=== PATIENT | male | born 1955 | race Caucasian/White ===

== ENCOUNTER 2019-10-08 05:04 | Observation (INO) ==
--- NOTE | 2019-09-12 16:00 | PAT Medication Instructions ---
Medication Instructions Date of Service September 12, 2019 Home Medications aspirin [Aspir-81] 81 mg PO QAM atorvastatin 80 mg PO HS ezetimibe 10 mg PO PM glipizide 10 mg PO BID lisinopril 2.5 mg PO PM metformin 1,000 mg PO BID sitagliptin [Januvia] 100 mg PO QAM DO NOT take the morning of surgery glipizide 10 mg PO BID metformin 1,000 mg PO BID sitagliptin [Januvia] 100 mg PO QAM Take morning of surgery With a small sip of water, OTHERWISE NOTHING TO EAT OR DRINK AFTER MIDNIGHT: aspirin [Aspir-81] 81 mg PO QAM Take evening before surgery atorvastatin 80 mg PO HS ezetimibe 10 mg PO PM glipizide 10 mg PO BID lisinopril 2.5 mg PO PM metformin 1,000 mg PO BID Other Notes If you have any questions please call us at [phone] or [phone] or [phone] or [phone]
--- NOTE | 2019-09-15 09:46 | Anesthesiology Consultation ---
Date of Service September 15, 2019 Assessment & Plan (1) Encounter for pre-operative examination: COVID Status: As of 09/14 assessment, patient denies travel to endemic area, known exposure/sick contacts, or symptoms of COVID19. Patient instructed that they and their household members must follow strict social distancing guidelines, wear a mask in public and avoid travel for 14 days prior to surgery. Preoperative COVID19 testing to be completed prior to surgery per surgeon's arrangements. Patient made aware to self-isolate as much as possible between COVID testing and surgery. BS[facility] AM DOS Chart Review Chart Review: Acceptable Risk for Surgery (pending surgeon-ordered PCP clearance) and Patient seen in Pre Admission Testing Teaching & Discussion Instructed NPO after midnight before surgery, except medications with 15 cc of water. Medication instructions provided according to the PAT guidelines. History Surgery Operation Date: 10/08/19 07:00 Proposed Procedures p Left Total Knee Arthroplasty - Fausto Chen MD Height/Weight Height: 5 ft 4 in Weight: 68.9 kg Allergies Allergy/AdvReac Type Severity Reaction Status Date / Time No Known Allergies Allergy Verified 09/08/19 10:10 Medications Home Medications Medication Instructions Recorded Confirmed Last Taken aspirin [Aspir-81] 81 mg PO QAM 09/08/19 09/08/19 Unknown atorvastatin 80 mg PO HS 09/08/19 09/08/19 Unknown ezetimibe 10 mg PO PM 09/08/19 09/08/19 Unknown glipizide 10 mg PO BID 09/08/19 09/08/19 Unknown lisinopril 2.5 mg PO PM 09/08/19 09/08/19 Unknown metformin 1,000 mg PO BID 09/08/19 09/08/19 Unknown sitagliptin [Januvia] 100 mg PO QAM 09/08/19 09/08/19 Unknown Past Medical History Medical History Asthma very mild > no inhaler Diabetes mellitus, type 2 niddm Hyperlipidemia Hypertension Exercise / Class Metabolic Activity II 4-5 Yardwork/Stairs/Walk up hill (Denies CP or SOB with 1 FOS) Past Family History Family History Father Diabetes Mother Colon cancer Past Surgical History Surgical History History of arthroscopy left knee History of colonoscopy History of tonsillectomy Past Anesthesia History No Hx of Anesthesia Complications and No Family Hx of Anesthesia Complications History of PONV No Hx of PONV and No Hx of Motion Sickness Social History Smoking Status: Never smoker Do You Dip or Chew Tobacco: No Hx Alcohol Use: Yes Alcohol type: beer and wine alcohol intake frequency: holidays/special occasions only (8/yr) Hx Substance Use: No substance use type: does not use Review of Systems Pt denies any recent chest pain, shortness of breath, palpitations, cough, fever, URI, or uncontrolled acid reflux. Physical Exam Vital Signs BP: 127/79 P: 78bpm SPO2: 96% RA T: 98.5 F R: 16 ENMT Mouth: no dental restorations, no chipped teeth and no loose teeth Thyromental Distance: > or= 3.5 Finger Breadths (3.5) Mallampati Class: I Neck normal visual inspection and + facial hair (medium length schwartz, pt advised to trim); neck extension not limited Respiratory normal respiratory effort Auscultation: lungs clear to auscultation bilaterally Cardiovascular Rate/Rhythm: regular rate and regular rhythm Heart Sounds: no murmur Extremities: no edema Testing Laboratory Results 09/15/19 09:55 09/15/19 09:55 PT 10.1 Seconds (9.0-12.0) 09/15/19 09:55 INR 1.0 (0.9-1.1) 09/15/19 09:55 APTT 26.2 Seconds (21.0-31.0) 09/15/19 09:55 Hemoglobin A1c 7.9 % (4.5-5.6) H 09/15/19 09:55 Urine Color Yellow 09/15/19 09:55 Urine Appearance Clear (Clear) 09/15/19 09:55 Urine pH 5.0 (4.5-7.5) 09/15/19 09:55 Ur Specific [place] 1.035 (1.000-1.030) H 09/15/19 09:55 Urine Protein Negative (Negative) 09/15/19 09:55 Urine Glucose (UA) 3+ (Negative) H 09/15/19 09:55 Urine Ketones Trace (Negative) H 09/15/19 09:55 Urine Nitrite Negative (Negative) 09/15/19 09:55 Ur Leukocyte Esterase Negative (Negative) 09/15/19 09:55 Blood Type A Negative 09/15/19 09:55 Antibody Screen NEGATIVE 09/15/19 09:55 Electrocardiogram Date: 09/15/19 Findings: + NSR @ (76bpm) and + RBBB Chest X-Ray Date: 09/15/19 Findings: + NAD
--- NOTE | 2019-09-15 10:30 | XRay Report ---
XR chest Pre-admission PA/Lat CLINICAL HISTORY: pat preoperative COMPARISON STUDY: No previous studies for comparison. FINDINGS: The bones soft tissues and hemidiaphragms are normal. The cardiomediastinal silhouette is n ormal. The lungs are clear. The pulmonary vasculature is normal. IMPRESSION: Negative chest. ACT 112: Negative or not required by law. The above report was generated using voice recognition software. It may contain grammatical, syntax or spelling errors. Electronically signed by: Mikel Rocha M.D. 09/15/2019 10:28 AM
[2019-09-15 10:59] LABS: Basophils # (auto) 0.04 K/uL (0-0.2); Basophils % (auto) 0.4 %; Eosinophils # (auto) 0.19 K/uL (0-0.5); Eosinophils % (auto) 2.1 %; Hematocrit (blood only) 39.7 % (42-52); Hemoglobin 13.5 g/dL (14.0-18.0); Immature Granulocytes # (auto) 0.03 K/uL (0.00-0.02); Immature Granulocytes % (auto) 0.3 %; Lymphocytes # (auto) 2.21 K/uL (1.2-3.4); Lymphocytes % (auto) 24.1 %; Mean Corpuscular Hemoglobin 30.6 pg (25-34); Mean Platelet Volume 10.1 fL (7.4-10.4); Monocytes # (auto) 0.79 K/uL (0.11-0.59); Monocytes % (auto) 8.6 %; Neutrophils # (auto) 5.91 K/uL (1.4-6.5); Neutrophils % (auto) 64.5 %; Platelet Count 300 K/uL (130-400); RDW Coefficient of Variation 12.8 % (11.5-14.5); RDW Standard Deviation 42.1 fL (36.4-46.3); Red Blood Count 4.41 M/uL (4.7-6.1); White Blood Count 9.17 K/uL (4.8-10.8)
[2019-09-15 11:05] LABS: Appearance Urine Clear (Clear); Bilirubin Urine Negative (Negative); Blood Urine Negative (Negative); Color Urine Yellow; Glucose Urine UA 3+ (Negative); Ketones Urine Trace (Negative); Leukocyte Esterase Urine Negative (Negative); Nitrite Urine Negative (Negative); Protein Urine Negative (Negative); Specific Gravity Urine 1.035 (1.000-1.030); Urobilinogen Urine Negative (Negative)
[2019-09-15 11:07] LABS: BUN Creatinine Ratio 20.9 (10-20); Calcium 9.2 mg/dl (8.5-10.1); Creatinine Clr Calc Pharmacy 56.6 ml/min; Est GFR (African American) 82.1; Est GFR (Non-African American) 70.9; Potassium 4.9 mmol/L (3.5-5.1)
[2019-09-15 11:10] LABS: Partial Thromboplastin Ratio 0.9; Partial Thromboplastin Time 26.2 Seconds (21.0-31.0); Prothrombin Time 10.1 Seconds (9.0-12.0)
[2019-09-15 12:03] LABS: Estimated Average Glucose 180 mg/dl; Hemoglobin A1C 7.9 % (4.5-5.6)
--- NOTE | 2019-09-15 17:53 | Electrocardiogram Report ---
Test Reason : Blood Pressure : / mmHG Vent. Rate : 076 BPM Atrial Rate : 076 BPM P-R Int : 152 ms QRS Dur : 138 ms QT Int : 412 ms P-R-T Axes : 062 -25 032 degrees QTc Int : 463 ms Normal sinus rhythm Right bundle branch block Abnormal ECG No previous ECGs available Confirmed by Yohannes Gillette ([id number]) on 09/15/2019 5:52:35 PM Referred By: Fausto Chen Confirmed By:Omar Gillette
--- NOTE | 2019-09-24 16:42 | History & Physical Report ---
Date of Service September 24, 2019 Assessment & Plan (1) Left knee DJD: Postoperative prescriptions for Percocet and Coumadin will be provided at discharge from the hospital. Anticipate discharge to home with home health services. He has already seen his PCP, Dr. Eng for medical clearance. The patient understands he will stop his metformin 48 hours prior to surgery. PDMP was checked today and is not concerning for any unusual findings. The patient is aware of the COVID-19 risks associated with surgery. He is currently asymptomatic of any COVID-19 symptoms. He will obtain nasal swab testing for COVID-19 prior to surgery. He already has crutches. He believes he has access to a walker and cane. History of Present Illness Chief Complaint: Left knee pain Primary Care Provider: Georges Eng This 63-year-old, white male presents for his preoperative history and physical. He is scheduled to undergo a left knee total knee arthroplasty on 10/08/2019. He has had left knee pain for over 25 years. Pain has become worse with time. He has noted increasing curvature of the lower leg over the last several years. He previously had an open meniscectomy done about 25 years ago. Denies any new trauma. Pain is worse with weightbearing. It is affecting his ambulation and his ADLs. Denies any catching or locking. No numbness or tingling. He denies any significant effusions. Preoperative imaging has been obtained. He elects to proceed with surgical intervention in hopes of improving his function and pain control. Allergies Allergy/AdvReac Type Severity Reaction Status Date / Time No Known Allergies Allergy Verified 09/08/19 10:10 Home Medications Home Medications Medication Instructions Recorded Confirmed Type aspirin [Aspir-81] 81 mg PO QAM 09/08/19 09/08/19 History atorvastatin 80 mg PO HS 09/08/19 09/08/19 History ezetimibe 10 mg PO PM 09/08/19 09/08/19 History glipizide 10 mg PO BID 09/08/19 09/08/19 History lisinopril 2.5 mg PO PM 09/08/19 09/08/19 History metformin 1,000 mg PO BID 09/08/19 09/08/19 History sitagliptin [Januvia] 100 mg PO QAM 09/08/19 09/08/19 History Past Med/Surg History Medical History Asthma very mild > no inhaler Diabetes mellitus, type 2 niddm Hyperlipidemia Hypertension Surgical History History of arthroscopy left knee History of colonoscopy History of tonsillectomy Family History Father Diabetes Mother Colon cancer Social History Smoking Status: Never smoker Second Hand Exposure: No; Do You Dip or Chew Tobacco: No; Tobacco Cessation Education Requested by Patient: No Hx Alcohol Use: Yes Alcohol type: beer and wine Hx Substance Use: No Preferred Language: [place] Communication Ability: Effective Hearing Ability: Normal [place] Man Required: No Beliefs That Will Affect Care: None marital status: Current Living Situation: Spouse current occupational status: retired Other Information That Helps Us Care for You: No Feels Safe at Home: Yes Safety Concerns: Feels Safe At This Time Review of Systems Review of Systems: All systems reviewed & are unremarkable except as noted in HPI & below A total of 10 systems are reviewed. Physical Exam Physical Exam: Vitals: Height 162.5 cm, weight 67.3 kg, BMI 25.5. Temperature 36.4 oral, BP 118/70, pulse 94, O2 sat 97% on room air. General: Well-developed, well-nourished, elderly white male in no acute distress. Sitting in a chair. Alert and oriented. Skin: Warm and dry with good turgor. No rashes or lesions. No ecchymosis or erythema. No intraarticular effusion. HEENT: Normocephalic, atraumatic. Eyes: PERRLA, EOMI. Nares patent bilaterally without turbinate enlargement. Oropharynx exam deferred due to COVID precautions. Heart: RRR, no MGR. Lungs: Clear to auscultation bilaterally, no crackles, rhonchi or wheezing, good air movement. Abdomen: Bowel sounds present x4, soft, nontender. No organomegaly. No masses. Musculoskeletal: Left knee evaluation reveals no intraarticular effusion. No redness or warmth. Slight varus positioning. Full terminal extension. Flexion to around 110 degrees. Strength is 5/5 with good quad tone. No MCL or LCL laxity. No defect in the patellar tendon or quadriceps tendon. He has focal discomfort with palpation over the medial joint line. No lateral joint line or posterior joint line discomfort with palpation today. Ambulates with a very minimally antalgic gait. Neurologic: Gross sensation is intact across both lower extremities by soft touch. Peripheral pulses are 2+. Results & Data Results & Data ([facility]) Diagnostic Findings Radiographic imaging previously obtained shows endstage medial joint space narrowing. He is essentially [id number]. Tricompartmental arthritic changes with periarticular osteophytes, and subchondral sclerosis. Mild lateral tibial subluxation.
[2019-10-08] MEDS ORDERED: ROPIVACAINE 0.5% HCL/PF 150 MG, BUPIVACAINE 0.5% MPF 30 ML, EPINEPHrine 0.15 MG, Ketoro... INFIL SCH (06:00)
[2019-10-08] MEDS ORDERED: ceFAZolin 2000MG 2,000 MG/15 ML SYR IV SCH (06:00)
[2019-10-08] MEDS ORDERED: LR 60ML/HR IV SCH (06:00)
[2019-10-08] MEDS ORDERED: LR 500ML BOLUS, THEN 15ML/HR IV SCH (06:00)
[2019-10-08] MEDS ORDERED: TRANEXAMIC ACID 1,000 MG **IV Intra-op IV SCH (06:00)
--- NOTE | 2019-10-08 06:14 | History & Physical Bridge Note ---
Date of Service October 08, 2019 History & Physical Bridge Note I have examined the patient, reviewed the History & Physical and in the interval since the performance of the History & Physical I have noted the following changes of clinical significance:consent obtained/site verified/covid screen negative. no changes noted
[2019-10-08] MEDS ORDERED: BUPIVACAINE 0.25% 30 ML VIAL ONE (06:23)
[2019-10-08] MEDS ORDERED: BUPIVACAINE 0.5 % 5 MG/1 ML PF 10ML VIAL ONE (06:23)
[2019-10-08] MEDS ORDERED: PROPOFOL IV EMULSION 10 MG/ML 20 ML VIAL IV ONE ×2 (06:29→06:30)
[2019-10-08] MEDS ORDERED: fentaNYL citrate 100 MCG/2 ML VIAL ONE (06:29)
[2019-10-08] MEDS ORDERED: LIDOCAINE HCL 2% 2 ML VIAL/AMP(20MG/ML) INFIL ONE (06:29)
[2019-10-08] MEDS ORDERED: MIDAZOLAM HCL 1 MG/ML 2ML VIAL ONE (06:29)
[2019-10-08] MEDS ORDERED: ORTHO JOINT ANESTHETIC ONE (06:31)
[2019-10-08] MEDS ORDERED: ATROPINE SULFATE 0.1 MG/ML 10ML SYR IV PRN (07:03)
[2019-10-08] MEDS ORDERED: ePHEDrine sulfate 50 MG/ML AMP IV PRN (07:03)
[2019-10-08] MEDS ORDERED: fentaNYL citrate 100 MCG/2 ML VIAL IV PRN (07:03)
[2019-10-08] MEDS ORDERED: ONDANSETRON INJ 2 MG/ML 2 ML VIAL IV PRN ×2 (07:03→10:39)
--- NOTE | 2019-10-08 08:24 | Post Operative Brief Note ---
Immediate Post Op Note v1 Date of Surgery October 08, 2019 Pre & Post Diagnosis Operation Date: 10/08/19 07:00 Pre-Op Diagnosis: Left Knee Degenerative Joint Disease Post-Op Diagnosis: Left Knee Degenerative Joint Disease I identified the patient and participated in the time-out.: Yes Procedure Operation Date: 10/08/19 07:00 Actual Procedures p Left Total Knee Arthroplasty(Left) - Fausto Chen MD Surgeon Fausto Chen MD Retail Planner kate/evy/celina Estimated Blood Loss 25 Findings Consistent with Post-Op Diagnosis
--- NOTE | 2019-10-08 08:47 | Operative Report ---
Post Operative Report Pre & Post Diagnosis Operation Date: 10/08/19 07:00 Pre-Op Diagnosis: Left Knee Degenerative Joint Disease Post-Op Diagnosis: Left Knee Degenerative Joint Disease I identified the patient and participated in the time-out.: Yes Procedure Operation Date: 10/08/19 07:00 Actual Procedures p Left Total Knee Arthroplasty(Left) - Fausto Chen MD Surgeon TEODORA Chen MD Fuel Cell Binder kate/kj/celina Estimated Blood Loss 25 Findings Consistent with Post-Op Diagnosis Specimens see operative report Drains none Complications none Disposition Accompanied Patient To Recovery: Yes Disposition: Recovery Room Indications This 64-year-old white male presented to the office with complaints of intractable left knee pain. He had tried conservative care measures including injection therapy, without improvement. He elected to proceed with surgical intervention after being educated about potential risks and outcomes. Preoperative imaging was obtained. Description of Procedure Patient was administered a spinal anesthetic and then taken the operating room where he was given sedation. He was prepped and draped in the usual sterile fashion. Please see Dr. Chen's operative report for specifics of the procedure. I was present for the entire case from initial patient positioning through final wound closure. Assistance was provided in tissue retraction, hemostasis, trial implant placement, final implant placement, and final wound closure. Patient was taken to the recovery room in satisfactory condition. I attest to the content of the Intraoperative Record and any orders documented therein. Any exceptions are noted below.
--- NOTE | 2019-10-08 08:48 | XRay Report ---
LEFT KNEE 2 VIEWS History: Left total knee arthroplasty. Degenerative arthritis. Postop. FINDINGS: The patient is status post a left total knee arthroplasty. The hardware is intact. No fract ure or dislocation. Skin pearl are in place. IMPRESSION: Left total knee arthroplasty. No evidence for hardware complication. ACT 112: Negative or not required by law. Electronically signed by: Thor Russell M.D. 10/08/2019 8:47 AM
--- NOTE | 2019-10-08 08:59 | Operative Report (OR) ---
DATE OF OPERATION: 10/08/2019 SURGEON: Fausto Chen MD. GENERAL EDUCATION INSTRUCTOR: Odette. SECOND GENERAL EDUCATION INSTRUCTOR: Dung Hadley PA-C. THIRD GENERAL EDUCATION INSTRUCTOR: Luisito. PREOPERATIVE DIAGNOSIS: Osteoarthritis, left knee with varus deformity. POSTOPERATIVE DIAGNOSIS: Osteoarthritis, left knee with varus deformity. OPERATION PERFORMED: Cemented left total knee replacement. SUMMARY OF IMPLANTS: Size 2.5 left femur, posterior cruciate substituting size 2.5 mobile bearing tray, 38 patella size 2.5 x 10 mm, posterior cruciate substituting insert, 2 bags of Palacos G cement. ESTIMATED BLOOD LOSS: 25 mL. BONE PATHOLOGY: Pending. DVT prophylaxis per protocol. PERIOPERATIVE SITUATION: Medically cleared male with intractable knee pain, has significant issues with recurrent pain, swelling and has failed conservative management over years and wants to proceed with surgical total knee replacement. He understands the risks and consequences per consent. He understands there are no guarantees. DESCRIPTION OF PROCEDURE: The patient appropriately identified, site verified, consent verified. Antibiotics confirmed as being given. The left lower extremity was prepped and draped in usual routine fashion. Tourniquet was inflated to 300 mmHg after exsanguination of limb with a rubber Esmarch bandage for a total of 49 minutes. Midline exposure utilized. Parapatellar arthrotomy performed. Synovectomy completed, osteophytes resected. Distal femur entered. Cruciates resected. Tibia subluxated, menisci resected. Distal femur resected 12 mm, proximal tibia resected 4 mm, the extension gap was excellent. Femur was sized between a 3 and a 2.5, and was measured 3 cut 2.5. The flexion gap was checked. It was excellent. The box cut was then made and the size 2.5 fit well through. The tibia was sized to 2-1/2, appropriate template applied. Broaching and reaming carried out. The trial reduction carried with a 10 mm spacer tracking of the patella was excellent, stability was excellent, mid range flexion was excellent, mid range stability was excellent. The patella was then resected leaving 16 mm. It was sized to a 38. Seating holes made and a 38 button tracked well. All implants were then removed. Orthomix injected all about the knee. Knee irrigated with Betadine Pulsavac and the permanent cemented in position, tibia, femur and patella in that order. After 12 minutes, the tourniquet deflated, minor bleeding was controlled with electrocautery. After 14 minutes knee flexed. Minor cement removal. The knee was then irrigated one final time after the spacer was removed, the trial spacer. The permanent liner was then seated. The knee reduced and then closed at 35-40 degrees of flexion with #2 Vicryl, 2-0 Vicryl and stainless steel clips. Appropriate dressing applied. The patient transferred to recovery room in satisfactory condition having tolerated the procedure well. I attest to the content of the Intraoperative Record and any orders documented therein. Any exception s are noted below.
--- NOTE | 2019-10-08 10:09 | Anesthesiology Progress Note ---
Date of Service October 08, 2019 Anesthesia Post Procedure Vital Signs Vital Signs: Temp Pulse Pulse Resp BP Pulse Ox 10/08/19 10:00 72 14 92/55 L 96 10/08/19 09:50 70 12 95/54 L 96 10/08/19 09:40 74 19 97/51 L 93 10/08/19 09:30 66 14 100/57 L 94 10/08/19 09:20 67 11 L 95/59 L 96 10/08/19 09:10 65 13 92/57 L 94 10/08/19 09:00 66 14 88/61 L 93 10/08/19 08:50 67 15 86/60 L 94 10/08/19 08:40 67 14 88/59 L 93 10/08/19 08:32 36.4 C L 77 14 97/53 L 95 10/08/19 05:55 70 18 111/72 96 10/08/19 05:29 36.6 C 77 20 122/85 97 Transfer of Care Handoff Completed per policy Notes Mental Status: alert / awake / arousable and participated in evaluation Nausea / Vomiting: adequately controlled Pain: adequately controlled Airway Patency, RR, SpO2: stable & adequate BP & HR: stable & adequate Hydration State: stable & adequate Neuraxial Anesthesia: was administered and sensory block is resolving Anesthetic Complications: no major complications apparent and Pt Satisfied with anesthetic care
[2019-10-08] MEDS ORDERED: TAMSULOSIN HCL 0.4 MG CAP PO PRN (10:39)
[2019-10-08] MEDS ORDERED: ALUMINUM/MAGNESIUM SUSP 30 ML UDC PO PRN (10:39)
[2019-10-08] MEDS ORDERED: NALOXONE HCL 0.4 MG/1 ML VIAL/CARP IV PRN (10:39)
[2019-10-08] MEDS ORDERED: MAGNESIUM HYDROXIDE SUSP 30 ML UDC PO PRN (10:39)
[2019-10-08] MEDS ORDERED: bisacodyL 10 MG SUPP PR PRN (10:39)
[2019-10-08] MEDS ORDERED: METOCLOPRAMIDE HCL INJ 5 MG/ML 2 ML VIAL IV PRN (10:39)
[2019-10-08] MEDS ORDERED: diphenhydrAMINE 50 MG/ML VIAL IV PRN (10:39)
[2019-10-08] MEDS ORDERED: oxyCODONE HCL IR 5 MG TAB (IMMEDIATE RELEASE) PO PRN (10:39)
[2019-10-08] MEDS ORDERED: HYDROmorphone INJ 0.5 MG/0.5 ML SYR IV PRN (10:39)
[2019-10-08] MEDS: SODIUM CHLORIDE 0.9% 1000ML 1,000 ML IV SCH ×2 (10:50→20:57)
--- NOTE | 2019-10-08 10:50 | Progress Notes ---
DATE: 10/08/2019 SUBJECTIVE: Postop check status post left total knee replacement. The patient is doing well. Still has block effect from his spinal, otherwise, has no issues. He denies chest pain, shortness of breath, fever, chills, nausea, vomiting or headache. OBJECTIVE: Vital signs are stable. He is afebrile. Wound dressing clean, dry and intact. Postop x-ray, AP and lateral knee looks excellent. ASSESSMENT: Status post knee replacement, left. Continue with postop care pathway. Discharged to home tomorrow if he does well overnight.
--- NOTE | 2019-10-08 11:00 | Discharge Summary (DS) ---
DATE OF DISCHARGE: 10/09/2019 CHIEF COMPLAINT: Left knee pain. HISTORY OF PRESENT ILLNESS: The patient underwent elective left total knee replacement. At this point in his care pathway, he is doing well. His postop x-rays look excellent. He denies any chest pain, shortness of breath, fever, chills, nausea, vomiting or headache. PAST MEDICAL HISTORY: Remarkable for asthma, diabetes mellitus, hyperlipidemia, hypertension, history of knee scopes, history of colonoscopies, tonsillectomy, history of diabetes, colon cancer in his mother. SOCIAL HISTORY: Reveals that he is . Does not really smoke or drink. Social alcohol only. Feels safe at home. REVIEW OF SYSTEMS: Noncontributory. ASSESSMENT: Status post left total knee replacement. Continue with care pathway. Discharge to home tomorrow if he does well overnight.
[2019-10-08] MEDS: ORTHO WARFARIN NOMOGRAM SCH (11:19)
[2019-10-08] MEDS: ASPIRIN 81 MG ECTAB PO SCH (11:54)
[2019-10-08] MEDS: DOCUSATE SODIUM 100 MG CAP PO SCH ×2 (11:54→20:56)
[2019-10-08] MEDS: MULTIVITAMIN TAB PO SCH (11:54)
[2019-10-08] MEDS: KETOROLAC TROMETHAMINE 15 MG/ML VIAL IV SCH ×3 (11:55→22:24)
[2019-10-08] MEDS: SITagliptin PHOSPHATE 100 MG TAB PO SCH (12:32)
[2019-10-08] MEDS: ACETAMINOPHEN 500 MG TAB PO SCH ×2 (12:33→20:58)
[2019-10-08] MEDS: INSULIN ASPART 100 UNITS/ML 3 ML PEN SC SCH ×3 (12:33→20:59)
[2019-10-08] MEDS ORDERED: LANTUS PER UNIT CHARGE SQ ONE (13:30)
[2019-10-08] MEDS: ceFAZolin 2000MG 2,000 MG/15 ML SYR IV SCH ×2 (14:32→22:15)
[2019-10-08] MEDS ORDERED: TRANEXAMIC ACID / 0.7% NACL 1,000 MG/100 ML BAG IV SCH (14:45)
[2019-10-08] MEDS ORDERED: WARFARIN SOD 5 MG TAB PO ONE (16:00)
[2019-10-08] MEDS: FERROUS GLUCONATE 324 MG TAB PO SCH (17:37)
[2019-10-08] MEDS: ASCORBIC ACID 500 MG TAB PO SCH (17:37)
[2019-10-08] MEDS ORDERED: EZETIMIBE 10 MG TABLET PO SCH (21:00)
[2019-10-08] MEDS ORDERED: ATORVASTATIN 40 MG TAB PO SCH (21:00)
[2019-10-08] MEDS ORDERED: lisinopril 2.5 MG TAB PO SCH (21:00)
[2019-10-08] MEDS ORDERED: SENNA 8.6 MG TAB PO SCH (21:00)
[2019-10-08] MEDS ORDERED: Nursing to Pharmacy Communication SCH (21:15)
[2019-10-08] MEDS ORDERED: PHARMACY GLYCEMIC MGMT CONSULT PRN (23:15)
[2019-10-09] MEDS ORDERED: LANTUS PER UNIT CHARGE SQ ONE (00:45)
[2019-10-09] MEDS: INSULIN ASPART 100 UNITS/ML 3 ML PEN SC SCH ×3 (00:46→08:43)
[2019-10-09] MEDS: KETOROLAC TROMETHAMINE 15 MG/ML VIAL IV SCH (05:34)
[2019-10-09] MEDS: ACETAMINOPHEN 500 MG TAB PO SCH (05:34)
[2019-10-09 05:49] LABS: Hematocrit (blood only) 35.4 % (42-52); Hemoglobin 12.3 g/dL (14.0-18.0); Mean Corpuscular Hemoglobin 31.1 pg (25-34); Mean Corpuscular Hgb Conc 34.7 g/dL (32-36); Mean Corpuscular Volume 89.6 fL (80-100); Mean Platelet Volume 10.2 fL (7.4-10.4); Platelet Count 277 K/uL (130-400); RDW Coefficient of Variation 12.6 % (11.5-14.5); RDW Standard Deviation 41.2 fL (36.4-46.3); Red Blood Count 3.95 M/uL (4.7-6.1); White Blood Count 17.23 K/uL (4.8-10.8)
[2019-10-09 05:54] LABS: Prothrombin Time 10.9 Seconds (9.0-12.0)
[2019-10-09 06:20] LABS: BUN Creatinine Ratio 15.3 (10-20); Calcium 8.8 mg/dl (8.5-10.1); Creatinine Clr Calc Pharmacy 54.8 ml/min; Est GFR (African American) 79.8; Est GFR (Non-African American) 68.8; Potassium 3.9 mmol/L (3.5-5.1)
[2019-10-09] MEDS: ORTHO WARFARIN NOMOGRAM SCH (07:03)
--- NOTE | 2019-10-09 07:44 | Anesthesiology Progress Note ---
Date of Service October 09, 2019 Anesthesia Post Procedure Vital Signs Vital Signs: Temp Pulse Pulse Resp BP BP Pulse Ox 10/09/19 04:00 36.7 C 92 H 16 107/68 94 10/08/19 23:09 37.0 C 75 16 103/58 L 94 10/08/19 21:23 37 C 85 18 137/74 94 10/08/19 15:21 36.7 C 76 18 111/82 95 10/08/19 13:29 36.6 C 74 18 130/76 95 10/08/19 12:29 36.5 C 72 16 119/77 96 10/08/19 11:32 36.2 C L 71 16 109/70 95 10/08/19 11:00 36.5 C 95 H 16 97/63 L 95 10/08/19 10:30 36.5 C 72 18 104/63 95 10/08/19 10:10 36.5 C 71 17 100/53 L 94 10/08/19 10:00 72 14 92/55 L 96 10/08/19 09:50 70 12 95/54 L 96 10/08/19 09:40 74 19 97/51 L 93 10/08/19 09:30 66 14 100/57 L 94 10/08/19 09:20 67 11 L 95/59 L 96 10/08/19 09:10 65 13 92/57 L 94 10/08/19 09:00 66 14 88/61 L 93 10/08/19 08:50 67 15 86/60 L 94 10/08/19 08:40 67 14 88/59 L 93 10/08/19 08:32 36.4 C L 77 14 97/53 L 95 Notes Mental Status: alert / awake / arousable and participated in evaluation Patient Amnestic to Procedure: Yes Nausea / Vomiting: adequately controlled Pain: adequately controlled Airway Patency, RR, SpO2: stable & adequate BP & HR: stable & adequate Hydration State: stable & adequate Neuraxial Anesthesia: was administered and sensory block resolved Anesthetic Complications: no major complications apparent and Pt Satisfied with anesthetic care
[2019-10-09] MEDS ORDERED: DEXTROSE 50% 50 ML SYRINGE IV PRN (07:45)
[2019-10-09] MEDS ORDERED: GLUCOSE 10 TABS/TUBE PO PRN (07:45)
[2019-10-09] MEDS ORDERED: CARBOHYDRATES FOR HYPOGLYCEMIA PO PRN (07:45)
[2019-10-09] MEDS ORDERED: GLUCAGON FOR INJ 1 MG VIAL IM PRN (07:45)
[2019-10-09] MEDS ORDERED: GLUCOSE 40% GEL 15 GM TUBE PO PRN (07:45)
--- NOTE | 2019-10-09 08:01 | Progress Notes ---
DATE: 10/09/2019 SUBJECTIVE: Postop day #1 status post left total knee replacement. The patient is doing well. Denies any chest pain, shortness of breath, fever, chills, nausea, vomiting or headache. OBJECTIVE: Vital signs are stable. He is afebrile. Neurovascular check, femoral sciatic nerve is normal. Can do a straight leg raise. Ankle pumps are intact. Wound dressing clean, dry and intact. Calf is nontender. LAB WORK: Reveals stable hematocrit. Demargination of white blood cell count, no issues. ASSESSMENT: Doing well. Discharge to home today after PT, OT and dressing change. Follow up in 2 weeks. Glucoses are more controlled.
[2019-10-09] MEDS: SITagliptin PHOSPHATE 100 MG TAB PO SCH (08:17)
[2019-10-09] MEDS: FERROUS GLUCONATE 324 MG TAB PO SCH (08:17)
[2019-10-09] MEDS: MULTIVITAMIN TAB PO SCH (08:17)
[2019-10-09] MEDS: DOCUSATE SODIUM 100 MG CAP PO SCH (08:17)
[2019-10-09] MEDS: ASPIRIN 81 MG ECTAB PO SCH (08:17)
[2019-10-09] MEDS: ASCORBIC ACID 500 MG TAB PO SCH (08:18)
[2019-10-09] MEDS ORDERED: INSULIN GLARGINE SOLOSTAR 100 UNITS/ML 3 ML PEN SC SCH (09:00)
--- NOTE | 2019-10-09 09:45 | Orthopedic Progress Note ---
Date of Service October 09, 2019 Assessment & Plan (1) Status post total left knee replacement: PT/OT this morning. Coumadin per nomogram this morning. Anticipate discharge to home with outpatient services. Patient has been seen by case management. Continue using his walker. Discontinue his knee immobilizer Sunday morning. Follow-up in the office on October 22 as scheduled for staple removal Continue keeping the wound clean and dry. Coumadin and Percocet prescriptions have been sent to his pharmacy. Written discharge instructions have been provided. Admission and Anticipated Discharge Date Admission Date: October 08, 2019 Subjective Patient is seen in his room this morning. He states he did well overnight. Denies any chest pain, nausea, vomiting, shortness of breath, or abdominal pain. He did have some difficulty controlling his blood sugar overnight. It is currently 170. He states it usually improves significantly when he is able to be up and walking. He states he was not surprised that it was high due to his lack of activity yesterday. No additional complaints. He feels ready for discharge to home. Review of Systems Review of Systems: All systems reviewed & are unremarkable except as noted in HPI & below Unchanged from yesterday. Physical Exam Physical Exam: General: Well-developed, well-nourished, middle-aged white male, in no acute distress. Sitting in bed. Alert and oriented. Good spirits this morning. Skin: Warm and dry with good turgor. No rashes or lesions. No significant ecchymosis or edema at the knee. No erythema. Surgical incision is present. Gato are intact. Wound edges are well approximated. No active bleeding. Scant dried blood on his postsurgical dressings. The patient is not diaphoretic. Musculoskeletal: Patient is able to perform a straight leg raise today. Intact motor function of the ankle and toes. Active flexion of about 40 degrees when the dressings are removed. This is without warming up. Neurologic: Gross sensation is intact across the left leg by soft touch. Peripheral pulses are 2+. Results & Data ([facility]) Vital Signs (Past 12 Hours) Vital Signs Temp Pulse Resp BP BP Pulse Ox 10/09/19 08:11 36.9 C 66 16 104/66 107/68 92 10/09/19 07:50 36.9 C 66 16 104/66 92 10/09/19 04:00 36.7 C 92 H 16 107/68 94 10/08/19 23:09 37.0 C 75 16 103/58 L 94 Laboratory Results H&H this morning are 12.3 and 35.4 WBCs are elevated at 17.2. Likely due to stress of surgery. INR is 1.0. Glucose overnight was elevated with a max of 342. It is currently 170.
--- NOTE | 2019-10-09 11:31 | Pharmacy Report ---
Glycemic Control Consultation - Date of Service October 09, 2019 - Scope Scope: Glycemic Pharmacist consulted for glycemic control and to write orders per [facility] inpatient glycemic control protocol. - Objective Weight: 68.237 kg Accuchecks BSG (last 24hrs): 10/08/19 10/08/19 10/08/19 08:34 12:28 17:27 Glucose POC Glucose 225 H 238 H 327 H* 10/08/19 10/08/19 10/08/19 20:40 22:52 22:55 Glucose POC Glucose 305 H* 342 H* 323 H* 10/09/19 10/09/19 10/09/19 00:25 03:56 05:01 Glucose 171 H POC Glucose 299 H 197 H 10/09/19 08:27 Glucose POC Glucose 170 H Laboratory Data (last 24hrs): 10/09/19 05:01 Potassium 3.9 Carbon Dioxide 26 Anion Gap 6.0 Creatinine 1.11 Est Cr Clr Drug Dosing 54.8 HbA1c: Hemoglobin A1c 7.9 % (4.5-5.6) H 09/15/19 09:55 - Recent Pertinent Medications Outpatient Anti-diabetic Regimen: * Metformin 1000 mg BID + Januvia 100 mg daily + Glipizide 10 mg BID * A1c = 7.9 % 09/15/19 The patient is currently receiving: * Basal insulin: Lantus 15 units SQ x 1 around lunchtime then 20 units SQ x 1 in the evening * Correctional Insulin: Novolog Correction per scale ACHS Goal Range: Low 100 mg/dL - High 140 mg/dL Correction Factor: 25 mg/dL/unit * Prandial insulin: Per carb ratio of 1 unit per 8 grams CHO consumed * Oral Agents: Januvia 100 mg daily Risk Factors for Insulin Resistance: * Steroids: dexamethasone 4 mg topically * Recent Surgery: POD 1 for knee surgery * Diet: carb count - Assessment & Plan Assessment & Plan: ASSESSMENT: * Mr Morris is a 64 y/o M with a PMH of T2DM -- he has an elevated HbA1C on three oral agents. He is POD 1 for a knee replacement. * Patient received a total of weight-based stress of 3 Lantus (~ 35 units). Fasting BSG this morning was 170 mg/dL so continue with Lantus 17 units SQ BID. * Also started on weight-based stress of 3 Novolog. Continue for now as BSG's elevated. * Pt is maintained on oral antidiabetic agents as an outpatient * Oral agents are not recommended for inpatient use d/t drug interactions, changing PO intake, and difficulty titrating for acute hyper/hypoglycemia. ADA recommends re-initiating outpatient oral agents 1-2 days prior to discharge if/when appropriate if they were held on admission. * ADA & AACE recommend a goal blood sugar range 140-180 mg/dl for the majority of critically ill & non-critically ill patients. However, more stringent targets may be selected in individual cases. Will utilize more stringent goal of 110-140mg/dl based on patient age & comorbidities. Additionally, tighter glycemic control is warranted to facilitate wound/infection healing. PLAN FOR INPATIENT GLYCEMIC CONTROL: * Holding outpatient oral diabetes medications * okay to continue Januvia for now. * restart other oral agents when sent home. * Basal insulin * Lantus 17 units SQ BID * Bolus insulin * NovoLog per scale ACHS or Q6hrs while NPO * Goal Range: Low 110 mg/dL - High 140 mg/dL * Correction Factor: 25 mg/dL/unit * Nutritional / Prandial insulin per carb ratio of 1 unit per 8 grams CHO consumed Recommendations for Discharge * Patient's HbA1C is above goal. * goal HbA1C is less than 7% * currently HbA1C is 7.9% * Recommend initiation of Lantus 20 units once daily -- can discontinue glip izide once this is started. Thank you.
[2019-10-09] MEDS ORDERED: WARFARIN SOD 5 MG TAB PO SCH (16:00)
--- NOTE | 2019-10-10 23:34 | Operative Report ---
Post Operative Report Pre & Post Diagnosis Operation Date: 10/08/19 07:00 Pre-Op Diagnosis: Left Knee Degenerative Joint Disease Post-Op Diagnosis: Left Knee Degenerative Joint Disease I identified the patient and participated in the time-out.: Yes Procedure Operation Date: 10/08/19 07:00 Actual Procedures p Left Total Knee Arthroplasty(Left) - Fausto Chen MD Surgeon Fausto Chen MD Heating Equipment Installer kate/kj/celina Estimated Blood Loss 25 Findings Consistent with Post-Op Diagnosis Specimens none Anesthesia Type General Complications none Disposition Accompanied Patient To Recovery: Yes Disposition: Recovery Room Description of Procedure As per 's note, I assisted in prepping and draping the patient, instruments handling, performed certain parts of the procedures and wound closure. I attest to the content of the Intraoperative Record and any orders documented therein. Any exceptions are noted below.
--- NOTE | 2019-10-10 23:40 | Operative Report ---
Post Operative Report Pre & Post Diagnosis Operation Date: 10/08/19 07:00 Pre-Op Diagnosis: Left Knee Degenerative Joint Disease Post-Op Diagnosis: Left Knee Degenerative Joint Disease I identified the patient and participated in the time-out.: Yes Procedure Operation Date: 10/08/19 07:00 Actual Procedures p Left Total Knee Arthroplasty(Left) - Fausto Chen MD Surgeon Fausto Chen MD Head End Desizing Machine Operator kate/kj/celina Estimated Blood Loss 25 Findings Consistent with Post-Op Diagnosis Specimens none Anesthesia Type Spinal Complications none Disposition Accompanied Patient To Recovery: Yes Disposition: Recovery Room Description of Procedure As per 's note, I assisted in prepping and draping, instruments handling, certain parts of the procedure and wound closure I attest to the content of the Intraoperative Record and any orders documented therein. Any exceptions are noted below.
== END 2019-10-09 11:44 | disposition home or self-care (01) ==
LOC: 3E 05:04 → ASU 05:04